=== PATIENT | female | born 1940 | race Two or more races ===

== ENCOUNTER 2017-08-20 16:36 | Emergency (ER) | payer OTHER ==
[~2017-08-20] VITALS: Ht 152.4 cm; Wt 60.8 kg
[~2017-08-20 16:36] MED LIST: ALENDRONATE SODI5 MG; AMLODIPINE BES2.5 MG; AVALIDE 150-12.1 TA1 PO; BAYER81 MG; CATAFLAM50 MG PO; CIPRO500 MG PO; COZAAR25 MG; COZAAR50 MG; ERGOLOID MESYLAT1 MG; FOSAMAX5 MG; FOSAMAX70 MG; LEVAQUIN500 MG PO; LEVAQUIN750 MG PO; LOSARTAN-HCTZ1 EAC2; MACROBID 100 M100 MG PO; MAXIMUM DAILY1 EACH; NAPRELAN375 MG; NORVASC10 MG; OMEPRAZOLE10 MG; OMEPRAZOLE20 MG PO; ORPH100T PO; PRILOSEC10 MG; SEPTRA DS TABLE1 TAB PO; SIMVASTATIN10 MG PO; ULTRAM50 MG PO; URETRON D-S TAB1 TAB PO; URETRON D/S TAB1 TAB PO; URIN D.S. TABLE1 TAB PO; [UNRECOGNIZED DRUG - OTHER]
[2017-08-20] MEDS ORDERED: HYZAAR 100-12.1 EACH (17:10)
== END 2017-08-20 18:58 | disposition home or self-care (01) ==
LOC: ER 16:36
DX: B02.8 Zoster with other complications (principal)

== ENCOUNTER 2017-09-15 11:04 | Emergency (ER) | payer OTHER ==
[~2017-09-15] VITALS: Ht 152.4 cm; Wt 60.8 kg
[~2017-09-15 11:04] MED LIST changes: +HYZAAR 100-12.1 EACH
[2017-09-15] MEDS ORDERED: CIPRO500 MG PO (14:16)
== END 2017-09-15 14:59 | disposition home or self-care (01) ==
LOC: ER 11:04
DX: N39.0 Urinary tract infection, site not specified (principal)

== ENCOUNTER 2017-10-09 09:02 | Outpatient (CLI) | payer OTHER ==
[~2017-10-09] VITALS: Ht 152.4 cm; Wt 61.7 kg
== END 2017-10-09 09:15 | disposition home or self-care (01) ==
LOC: OFIC 805 09:02
DX: H90.42 Sensorineural hearing loss, unilateral, left ear, with unrestricted hearing on the contralateral side (principal); R42 Dizziness and giddiness; H93.12 Tinnitus, left ear; D33.3 Benign neoplasm of cranial nerves; J31.0 Chronic rhinitis

== ENCOUNTER 2017-11-13 09:53 | Outpatient (CLI) | payer OTHER ==
[~2017-11-13] VITALS: Ht 152.4 cm; Wt 62.6 kg
== END 2017-11-13 10:15 | disposition home or self-care (01) ==
LOC: OFIC 805 09:53
DX: J31.0 Chronic rhinitis (principal); R42 Dizziness and giddiness; H90.42 Sensorineural hearing loss, unilateral, left ear, with unrestricted hearing on the contralateral side; H93.3X2 Disorders of left acoustic nerve

== ENCOUNTER 2018-07-30 08:39 | Outpatient (CLI) | payer OTHER | END 2018-07-30 08:42 | disposition home or self-care (01) | LOC: SONOGRAMA 08:39 | DX: M25.511 Pain in right shoulder (principal); I67.82 Cerebral ischemia; G30.8 Other Alzheimer's disease; M50.30 Other cervical disc degeneration, unspecified cervical region; M96.1 Postlaminectomy syndrome, not elsewhere classified; M47.16 Other spondylosis with myelopathy, lumbar region; S43.80XA Sprain of other specified parts of unspecified shoulder girdle, initial encounter; M54.2 Cervicalgia ==

== ENCOUNTER → 2019-01-03 | Emergency (ER) | payer OTHER ==
[~2019-01-03] VITALS: Ht 152.4 cm; Wt 61.2 kg
== END | disposition home or self-care (01) ==
LOC: ER 11:03
DX: R53.1 Weakness (principal); E87.6 Hypokalemia

== ENCOUNTER 2019-05-30 07:26 | Emergency (ER) | payer OTHER ==
[~2019-05-30] VITALS: Ht 152.4 cm; Wt 56.2 kg
== END 2019-05-30 12:31 | disposition home or self-care (01) ==
LOC: ER 07:26
DX: S90.02XA Contusion of left ankle, initial encounter (principal); M25.551 Pain in right hip; M54.5 Low back pain; W18.39XA Other fall on same level, initial encounter; Y93.89 Activity, other specified; Y92.098 Other place in other non-institutional residence as the place of occurrence of the external cause; Y99.8 Other external cause status